=== PATIENT | male | born 1960 | race American Indian/Alaskan Native ===

== ENCOUNTER 2016-11-26 22:23 | Observation (INO) | payer BC ==
[2016-11-26 22:36] VITALS: BMI 24.4
[2016-11-26] MEDS ORDERED: Morphine 4 mg/ml ISec IVP STA (22:37)
--- NOTE | 2016-11-26 22:40 | ED PDOC ---
Arrival/HPI - General Time Seen by Provider: 11/26/16 22:27 Historian: Patient - History of Present Illness Narrative History of Present Illness (Text): 11/26/16 22:36 56 y/o male, pmh including IL with 2 cardiac stents (LAD) place by Dr. Burroughs from [facility] on 04/2010 at [place], [place]/hyperlipidemia, non- compliant with his aspirin and lipitor, c/o midsternal chest pain started today. Pt. stated that he has been walking up and down the slopes of street, chest pain aggravated walking and improved when resting, been having mid sternal chest pain 3-4 times through out the day which has not completely resolved, no palpitation, no numbness or tingling, no rash, no night sweat, no other medical or psychological complaints. Past Medical History - Provider Review Nursing Documentation Reviewed: Yes Family/Social History - Physician Review Nursing Documentation Reviewed: Yes Family/Social History: Unknown Family HX Allergies/Home Meds Allergies/Adverse Reactions: Allergies No Known Allergies Allergy (Verified 11/26/16 22:48) Review of Systems - Review of Systems Constitutional: absent: Fatigue, Fevers Eyes: absent: Vision Changes ENT: absent: Hearing Changes Respiratory: absent: SOB, Cough Cardiovascular: Chest Pain. absent: Orthopnea, Syncope Gastrointestinal: absent: Abdominal Pain, Nausea, Vomiting Skin: absent: Rash, Pruritis Neurological: absent: Headache Psychiatric: absent: Anxiety, Depression Physical Exam Vital Signs Temp Pulse Resp BP Pulse Ox 11/27/16 02:30 51 L 12 133/81 100 11/26/16 23:51 53 L 18 139/88 99 11/26/16 22:52 98.1 F 63 18 147/82 99 Pain Distress: Moderate - Systems Exam Head: Present: Atraumatic, Normocephalic Pupils: Present: PERRL Extroacular Muscles: Present: EOMI Conjunctiva: Present: Normal Mouth: Present: Moist Mucous Membranes Neck: Present: Normal Range of Motion Respiratory/Chest: Present: Clear to Auscultation, Good Air Exchange. No: Respiratory Distress, Accessory Muscle Use, Wheezes, Decreased Breath Sounds, Rales, Retracting, Rhonchi, Tachypneic, Tender to Palpation, Other Cardiovascular: Present: Regular Rate and Rhythm, Normal S1, S2, Other (no pedal edema). No: Murmurs, Irregular Rhythm, Tachycardic Abdomen: Present: Normal Bowel Sounds. No: Tenderness, Distention, Peritoneal Signs Back: Present: Normal Inspection Upper Extremity: Present: Normal Inspection. No: Cyanosis, Edema Lower Extremity: Present: Normal Inspection. No: Edema Neurological: Present: GCS=15, Speech Normal, Motor Func Grossly Intact, Gait Normal, Memory Normal Skin: Present: Warm, Dry, Normal Color. No: Rashes Psychiatric: Present: Alert, Oriented x 3, Normal Insight, Normal Concentration Medical Decision Making ED Course and Treatment: 11/26/16 22:40 -labs/ua -ekg/chest xray -IVF/aspirin/morphine/nitro SL q5min up to 3 times prn -campus monitor -observe and reassess 11/27/16 00:04 -NSR @ 69 BPM, no ST elevation or depression, T wave inversion noted on the V2- V3, no previous ekg available for comparison. -Chest xray show no active disease -Labs show no acute findings except troponin is inconclusive -1st set of troponin is indeterminate with no trend available at this point. -Pt. will need telemetry admission with 24 hours of cardiac enzyme to rule out ACS and observation over night. I discussed with the patient and he agreed to be admitted over night. -Dr. Calderon spoke to Dr. Harrell and discussed about the case to be admitted to Dr. Harrell's service -I spoke to the director medical science, discussed about the case, will come to see the patient and he will discussed with DR. Harrell - Lab Interpretations Lab Results: 11/26/16 23:15 11/26/16 23:15 Lab Results 11/26/16 23:15: Sodium 141, Potassium 3.7, Chloride 104, Carbon Dioxide 27, Anion Gap 14, BUN 19, Creatinine 1.1, Est GFR ( Amer) > 60, Est GFR (Non- Af Amer) > 60, Random Glucose 103, Calcium 9.1, Total Bilirubin 0.4, AST 22, ALT 36, Alkaline Phosphatase 54, Lactate Dehydrogenase 364, Total Creatine Kinase 140, Troponin I 0.07, NT-Pro-B Natriuret Pep 69.9, Total Protein 7.1, Albumin 4.0, Globulin 3.0, Albumin/Globulin Ratio 1.3 11/26/16 23:15: WBC 6.3, RBC 4.32, Hgb 13.2 L, Hct 39.4 L, MCV 91.2, MCH 30.6, MCHC 33.5, RDW 13.4, Plt Count 255, MPV 8.6, Gran % 63.8, Lymph % (Auto) 27.9, [place] % (Auto) 7.3 H, Eos % (Auto) 0.8 L, Baso % (Auto) 0.2, Gran # 4.01, Lymph # 1.8, [place] # 0.5, Eos # 0.1, Baso # 0.01 Interpretation: Abnormal lab values (troponin .07) - RAD Interpretation Radiology Orders: 11/26/16 22:37 CHEST PORTABLE [RAD] Stat no active disease Wet Machine Cutter: Radiologist - Medication Orders Current Medication Orders: Aspirin (Ecotrin) 81 mg PO DAILY [facility] Last Admin: 11/28/16 10:44 Dose: Atorvastatin Calcium (Lipitor) 40 mg PO DIN [facility] Last Admin: 11/28/16 18:21 Dose: 40 mg Clopidogrel Bisulfate (Plavix) 75 mg PO DAILY [facility] Last Admin: 11/28/16 10:45 Dose: Hydralazine HCl (Apresoline) 10 mg PO BID [facility] Last Admin: 11/29/16 08:11 Dose: 10 mg [facility] Pulse and Blood Pressure Document 11/29/16 08:11 RDS (Rec: 11/29/16 08:11 [place]DS [facility] [id number] Pulse Pulse Rate (60-90) 52 Blood Pressure Blood Pressure (100/60-150/90) 145/85 Metoprolol Tartrate (Lopressor) 12.5 mg PO DAILY [facility] Last Admin: 11/28/16 10:32 Dose: Not Given Non-Admin Reason: BP Parameters Not Met [facility] Pulse and Blood Pressure Document 11/28/16 10:32 KMS (Rec: 11/28/16 10:32 KMS [facility] [id number] Pulse Pulse Rate (60-90) 54 Blood Pressure Blood Pressure (100/60-150/90) 185/110 Discontinued Medications Aspirin (Aspirin) 325 mg PO STAT STA Stop: 11/26/16 22:38 Last Admin: 11/26/16 23:16 Dose: 325 mg Atorvastatin Calcium (Lipitor) 10 mg PO DIN [facility] Atorvastatin Calcium (Lipitor) 80 mg PO DIN [facility] Last Admin: 11/27/16 18:14 Dose: 80 mg Bivalirudin (Angiomax) Confirm Administered Dose 250 mg [facility] Stop: 11/28/16 07:18 Last Admin: 11/28/16 08:50 Dose: 250 mg Comments: AngioMax IV Bolus 12 ml was given @ 0850, followed by an IV Drip @ 27.8 ml/hr - discontinued @ 0906 eMAR Start Stop Document 11/28/16 08:50 KPA (Rec: 11/28/16 09:45 KPA [id number]) Intravenous Solution Start Date 11/28/16 Start Time 08:50 End Date 11/28/16 End time 09:06 Total Infusion Time 16 Clonidine HCl (Catapres) 0.1 mg PO BID [facility] Last Admin: 11/28/16 18:29 Dose: 0.1 mg MAR Pulse and Blood Pressure Document 11/28/16 18:29 KMS (Rec: 11/28/16 18:29 KMS [facility] [id number] Pulse Pulse Rate (60-90) 65 Blood Pressure Blood Pressure (100/60-150/90) 124/64 Clonidine HCl (Catapres) 0.1 mg PO 1130,1230 PRN PRN Reason: ONLY IF SBP GREATER THAN 150 Last Admin: 11/28/16 11:31 Dose: 0.1 mg MAR Pulse and Blood Pressure Document 11/28/16 11:31 KMS (Rec: 11/28/16 11:31 KMS [facility] [id number] Pulse Pulse Rate (60-90) 64 Blood Pressure Blood Pressure (100/60-150/90) 151/86 Clopidogrel Bisulfate (Plavix) 300 mg PO STAT STA Stop: 11/27/16 00:06 Last Admin: 11/27/16 00:25 Dose: 300 mg Fentanyl (Fentanyl) Confirm Administered Dose 100 mcg .ROUTE .[place]-MED ONE Stop: 11/28/16 07:53 Last Admin: 11/28/16 08:22 Dose: 100 mcg Comments: Dr. Rigo Sims adm. Fentanyl 50 mcg IV @ 0822, an additional dose of Fentanyl 50 mcg IV was given @ 0838 MAR Pain Assessment Document 11/28/16 08:22 KPA (Rec: 11/28/16 09:47 KPA [id number]) Pain Reassessment Is this a pain reassessment? No Sleep Is patient sleeping during reassessment? No Presence of Pain Presence of Pain Yes Fentanyl (Fentanyl) Confirm Administered Dose 100 mcg .ROUTE .STK-MED ONE Stop: 11/28/16 08:26 Last Admin: 11/28/16 09:10 Dose: 50 mcg [facility] Pain Assessment Document 11/28/16 09:10 KPA (Rec: 11/28/16 09:48 KPA [id number]) Pain Reassessment Is this a pain reassessment? No Sleep Is patient sleeping during reassessment? No Presence of Pain Presence of Pain Yes Re-Assess: [facility] Pain Assessment Document 11/28/16 10:10 KMS (Rec: 11/28/16 12:37 KMS [facility] [id number] Pain Reassessment Is this a pain reassessment? Yes Sleep Is patient sleeping during reassessment? No Presence of Pain Presence of Pain No Heparin Sodium (Porcine) (Heparin) 5,000 units SC Q12 [facility] PRN Reason: Protocol Last Admin: 11/27/16 09:56 Dose: 5,000 units Subcutaneous Administrations Document 11/27/16 09:56 RDS (Rec: 11/27/16 09:56 RDS [facility] [id number] Charges for Administration # of Subcutaneous Administrations 1 Hydralazine HCl (Apresoline) Confirm Administered Dose 20 mg .ROUTE .[place]-MED ONE Stop: 11/28/16 08:41 Last Admin: 11/28/16 09:47 Dose: Sodium Chloride (Sodium Chloride 0.9%) 1,000 mls @ 100 mls/hr IV .Q10H [facility] Stop: 11/28/16 14:00 Last Admin: 11/28/16 13:16 Dose: 100 mls/hr eMAR Start Stop Document 11/28/16 13:16 KMS (Rec: 11/28/16 13:31 KMS [facility] [id number] Intravenous Solution Start Date 11/28/16 Start Time 13:30 End Date 11/28/16 End time 14:00 Total Infusion Time 30 Heparin Sodium (Porcine) (Heparin 1000 Units/500 Ml Ns) Confirm Administered Dose 1,500 mls @ ud IV .STK-MED ONE Stop: 11/28/16 07:19 Last Admin: 11/28/16 12:13 Dose: Not Given Non-Admin Reason: Patient in Cardiology Iodixanol (Visipaque 320 Mg/Ml 200 Ml) Confirm Administered Dose 200 ml IV .STK- MED ONE Stop: 11/28/16 07:19 Last Admin: 11/28/16 12:14 Dose: Not Given Non-Admin Reason: Patient in Cardiology Lidocaine HCl (Lidocaine 2% 20ml Vial) Confirm Administered Dose 20 ml .ROUTE .STK-MED ONE Stop: 11/28/16 07:18 Last Admin: 11/28/16 12:13 Dose: Not Given Non-Admin Reason: Patient in Cardiology Midazolam HCl (Versed Inj) Confirm Administered Dose 2 mg .ROUTE .STK-MED ONE Stop: 11/28/16 07:53 Last Admin: 11/28/16 08:22 Dose: 2 mg Comments: Dr. Rigo Sims adm. Versed 2 mg IV @ 0822 Midazolam HCl (Versed Inj) Confirm Administered Dose 2 mg .ROUTE .STK-MED ONE Stop: 11/28/16 08:25 Last Admin: 11/28/16 08:38 Dose: 2 mg Comments: Versed 1 mg IV was given @ 0838 and 0846 Morphine Sulfate (Morphine) 4 mg IVP STAT STA Stop: 11/26/16 22:38 Last Admin: 11/26/16 23:16 Dose: 4 mg MAR Pain Assessment Document 11/26/16 23:16 (Rec: 11/26/16 23:16 YP [id number]) Pain Reassessment Is this a pain reassessment? No Sleep Is patient sleeping during reassessment? No Presence of Pain Presence of Pain Yes IVP Administration Document 11/26/16 23:16 YP (Rec: 11/26/16 23:16 [id number] Charges for Administration # of IVP Administrations 1 Nitroglycerin (Nitrostat Sl Tab) 0.3 mg SL STAT STA Stop: 11/26/16 22:38 Last Admin: 11/26/16 23:16 Dose: Nitroglycerin (Nitrostat Sl Tab) 0.3 mg SL Q5MIN STA Stop: 11/26/16 22:38 Last Admin: 11/26/16 23:16 Dose: 0.3 mg Pantoprazole Sodium (Protonix Ec Tab) 40 mg PO 0600 [facility] Last Admin: 11/27/16 06:23 Dose: - PA / DRYWALL SPRAYER / Resident Statement /DO has reviewed & agrees with the documentation as recorded. Disposition/Present on Arrival - Present on Arrival Any Indicators Present on Arrival: No History of DVT/PE: No History of Uncontrolled Diabetes: No Urinary Catheter: No History of Decub. Ulcer: No - Disposition Have Diagnosis and Disposition been Completed?: Yes Diagnosis: Chest pain, Abnormal EKG Disposition: HOSPITALIZED Disposition Time: 00:06 Patient Plan: Admission, Telemetry Patient Problems: Current Active Problems Problem Status Onset Chest pain Acute Abnormal EKG Acute Condition: GUARDED
[2016-11-26] MEDS: Sodium Chloride 0.9% 1,000 ML IV SCH (23:16)
[2016-11-26 23:25] LABS: BASO # 0.01 K/mm3 (0.0-2.0); BASO % 0.2 % (0.0-3.0); EOS # 0.1 (0.0-0.7); EOS % 0.8 % (1.5-5.0); GRAN # 4.01 (1.4-6.5); GRAN % 63.8 % (50.0-68.0); HEMATOCRIT 39.4 % (42.0-52.0); LYMPH # 1.8 (1.2-3.4); LYMPH % 27.9 % (22.0-35.0); MEAN CELL VOLUME 91.2 fl (80.0-105.0); MEAN CORPUSCULAR HEMOGLOBIN 30.6 pg (25.0-35.0); MEAN CORPUSCULAR HGB CONC 33.5 g/dl (31.0-37.0); MEAN PLATELET VOLUME 8.6 fl (7.0-11.0); MONO # 0.5 (0.1-0.6); MONO % 7.3 % (1.0-6.0); RED CELL DISTRIBUTION WIDTH 13.4 % (11.5-14.5); WHITE BLOOD COUNT 6.3 10^3/ul (4.5-11.0)
[2016-11-26 23:45] LABS: ALB/GLOB RATIO 1.3 (1.1-1.8); ALKALINE PHOSPHATASE 54 U/L (38-126); ALT/SGPT 36 U/L (7-56); AST/SGOT 22 U/L (17-59); BILIRUBIN,TOTAL 0.4 mg/dL (0.2-1.3); BLOOD UREA NITROGEN 19 mg/dL (7-21); CALCIUM 9.1 mg/dL (8.4-10.5); CARBON DIOXIDE 27 mmol/L (21-33); CHLORIDE 104 mmol/L (98-107); GFR AFRICAN-AMERICAN > 60; GLUCOSE,RANDOM 103 mg/dL (70-110); POTASSIUM 3.7 mmol/L (3.6-5.0); SODIUM 141 mmol/L (132-148); TOTAL PROTEIN 7.1 g/dL (5.8-8.3)
[2016-11-26 23:57] LABS: TROPONIN I 0.07 ng/mL
--- NOTE | 2016-11-27 04:00 | CP.PCM.HP ---
History of Present Illness - History of Present Illness History of Present Illness: Armand Thomas DO PGY1 - Internal Medicine H&P for Dr. Harrell CC: CP HPI: 56yo M with PMH of CAD s/p stents presents to ER for chest pain earlier this morning. He had several episodes of chest "squeezing and pounding" with diaphoresis today, associated with exertion. The first was in the morning when he was on his way to work, running to catch a train, which lasted until he stopped running, and stood to catch his breath. Throughout the day, any time he would exert himself by walking uphill or running up stairs, he would have a similar sensation. In the afternoon, he took 325mg ASA once, after which point the pain resolved. He took the same dose again twice more throughout the day for the same sensation. Each time he had the pain, it would resolve soon after he stopped to rest. He has not had this pain before, including when he previously had a heart attack. Currently, he denies any CP, SOB, N/V/D, abdominal pain, F/C, arm pain, back pain, neck pain, BLANCA, focal weakness or numbness, palpitations, confusion. Of note, patient reports that he stopped taking ASA and plavix about 2 years ago , and has not had follow up with any physicians since then. He moved to [place] 2 years ago from [place]. PMH: CAD with MS 2010 s/p 2 stents, dyslipidemia PSH: None Meds: None Soc: Tob denies; EtOH 2-3 drinks weekly; Illicits denies All: NKDA ROS: Constitutional: pt denies fever, chills, generalized weakness ENT: pt denies dysphagia, otalgia, hearing deficit, rhinorrhea Eyes: pt denies sudden loss of vision, diplopia, blurred vision MSK: pt denies muscle stiffness, joint pain, extremity cramping Cardio: pt denies sob, heart murmur, CP Pulm: pt denies cough, hemoptysis, wheeze GI: pt denies loss of appetite, abdominal pain, constipation, melena, n/v/d : pt denies burning on urination, urinary frequency, hematuria, urinary urgency Neuro: pt denies paresis, paresthesia, dizziness, blanca, numbness, tingling Derm: pt denies skin changes, lesions, nail changes Endo: pt denies intolerance to heat/cold, diaphoresis, night sweats, polydipsia Psych: pt denies anxiety, depression, mood changes Present on Admission - Present on Admission Any Indicators Present on Admission: No Past Patient History - Past Social History Smoking Status: Light Smoker < 10 Cigarettes Daily - CARDIAC Hx Cardiac Disorders: Yes Hx Hypercholesterolemia: Yes Hx Hypertension: Yes - PULMONARY Hx Respiratory Disorders: No - NEUROLOGICAL Hx Neurological Disorder: No - HEENT Hx HEENT Problems: Yes Other/Comment: wear glasses - RENAL Hx Chronic Kidney Disease: No - ENDOCRINE/METABOLIC Hx Endocrine Disorders: No - HEMATOLOGICAL/ONCOLOGICAL Hx Blood Disorders: No - INTEGUMENTARY Hx Dermatological Problems: No - MUSCULOSKELETAL/RHEUMATOLOGICAL Hx Musculoskeletal Disorders: No Hx Falls: No - GASTROINTESTINAL Hx Gastrointestinal Disorders: No - GENITOURINARY/GYNECOLOGICAL Hx Genitourinary Disorders: No - PSYCHIATRIC Hx Psychophysiologic Disorder: No - SURGICAL HISTORY Hx Surgeries: No Hx Cardiac Catheterization: Yes Hx Coronary Stent: Yes - ANESTHESIA Hx Anesthesia: No Meds Allergies/Adverse Reactions: Allergies Allergy/AdvReac Type Severity Reaction Status Date / Time No Known Allergies Allergy Verified 11/26/16 22:48 Results - Vital Signs Recent Vital Signs: Last Vital Signs Temp 97.7 F 11/27/16 03:30 Pulse 49 L 11/27/16 03:30 Resp 20 11/27/16 03:30 BP 141/85 11/27/16 03:30 Pulse Ox 100 11/27/16 02:30 - Labs Result Diagrams: 11/26/16 23:15 11/26/16 23:15 Assessment & Plan - Assessment and Plan (Free Text) Assessment: 56 yo M with PMH of CAD s/p stents and dyslipidemia who presented for CPOE earlier in the day, currently without CP. Plan: Chest pain, r/o ACS - Patient with h/o CAD complaining of chest pain on exertion, but currently without chest pain - EKG in ER shows NSR with inverted T-waves in V2 and V3 - First trop indeterminate at 0.07, continue to trend - Start ASA, Plavix, Lipitor, and Metoprolol - Consult cardio Tyesha), appreciate recs h/o Dyslipidemia - Check lipid panel with AM labs - Start Lipitor - Heart healthy diet GI/DVT Ppx - Heparin and protonix Patient discussed and case reviewed with attending
[2016-11-27] MEDS ORDERED: Pantoprazole 40 mg EC Tab PO SCH (06:00)
[2016-11-27 06:39] LABS: BASO # 0.01 K/mm3 (0.0-2.0); BASO % 0.2 % (0.0-3.0); EOS % 0.6 % (1.5-5.0); GRAN # 3.95 (1.4-6.5); GRAN % 62.7 % (50.0-68.0); HEMATOCRIT 39.3 % (42.0-52.0); LYMPH # 1.8 (1.2-3.4); LYMPH % 29.3 % (22.0-35.0); MEAN CELL VOLUME 92.7 fl (80.0-105.0); MEAN CORPUSCULAR HEMOGLOBIN 30.4 pg (25.0-35.0); MEAN CORPUSCULAR HGB CONC 32.8 g/dl (31.0-37.0); MEAN PLATELET VOLUME 8.9 fl (7.0-11.0); MONO # 0.5 (0.1-0.6); MONO % 7.2 % (1.0-6.0); RED CELL DISTRIBUTION WIDTH 13.7 % (11.5-14.5); WHITE BLOOD COUNT 6.3 10^3/ul (4.5-11.0)
[2016-11-27 07:19] LABS: ALB/GLOB RATIO 1.2 (1.1-1.8); ALKALINE PHOSPHATASE 50 U/L (38-126); ALT/SGPT 38 U/L (7-56); AST/SGOT 26 U/L (17-59); BILIRUBIN,TOTAL 0.4 mg/dL (0.2-1.3); BLOOD UREA NITROGEN 17 mg/dL (7-21); CALCIUM 8.8 mg/dL (8.4-10.5); CARBON DIOXIDE 27 mmol/L (21-33); CHLORIDE 106 mmol/L (98-107); CHOLESTEROL 208 mg/dL (130-200); GFR AFRICAN-AMERICAN > 60; GLUCOSE,RANDOM 91 mg/dL (70-110); MAGNESIUM 1.9 mg/dL (1.7-2.2); PHOSPHOROUS 3.5 mg/dL (2.5-4.5); POTASSIUM 3.9 mmol/L (3.6-5.0); SODIUM 143 mmol/L (132-148); TOTAL PROTEIN 6.7 g/dL (5.8-8.3)
[2016-11-27 07:21] LABS: TROPONIN I 0.05 ng/mL
[2016-11-27 07:28] LABS: INR 1.09 (0.93-1.08); PARTIAL THROMBOPLASTIN TIME 33.3 Seconds (23.7-30.8)
[2016-11-27] MEDS ORDERED: Metoprolol Succinate 25 mg XL Tab PO SCH (08:00)
--- NOTE | 2016-11-27 08:23 | RAD ---
HISTORY: chest pain COMPARISON: No prior. FINDINGS: LUNGS: No active pulmonary disease. PLEURA: No significant pleural effusion identified, no pneumothorax apparent. CARDIOVASCULAR: Normal. OSSEOUS STRUCTURES: Minor multilevel degenerative spondylosis of thoracic spine VISUALIZED UPPER ABDOMEN: Normal. OTHER FINDINGS: None. IMPRESSION: No active disease.
[2016-11-27] MEDS: Sodium Chloride 0.9% 1,000 ML IV SCH ×3 (08:45→18:50)
[2016-11-27 11:18] LABS: TROPONIN I 0.02 ng/mL
--- NOTE | 2016-11-27 12:22 | HP ---
HISTORY OF PRESENT ILLNESS: The patient is a 56-year-old -[place]og[place] male who presented to the emergency room in the late night hours of 11/26 with complaints of chest pain. The patient came to the emergency room by [facility] ambulance as per the ER triage notes. According to the patient's ER assessment and the assessment by the emergency and the bacteriologist medical, the patient stated that the patient has history of myocardial infarction, coronary artery disease, coronary angioplasty and stent placement, has been followed by a physician in [place], [place]. The patient also has history of hyperlipidemia. The patient also stated that he has been noncompliant with his aspirin and Lipitor, presented with complaining of midsternal retrosternal chest pain which started on 11/26. The patient's chest pain is exaggerated by exertion and walking up and down the slopes of the street. The patient's chest pain is worse with walking and improved with resting. The patient is reporting midsternal retrosternal chest pain almost everyday, which does not resolve completely. REVIEW OF SYSTEMS: The patient's 13-system review was done, pertinent positive and negative dictated above. The patient described the chest pain as squeezing and pounding with shortness of breath, diaphoresis and is associated with exertion. The patient is having recurrent episodes of chest pain with exertion, which subsides with rest. According to the patient's evaluation, the patient has stopped taking his aspirin and Plavix 2 years ago, has not followed up with the physician. The patient also stated to the bacteriologist medical that he has moved to [place] 2 years ago from [place]. PAST MEDICAL HISTORY: Significant for coronary artery disease, history of myocardial infarction in 2010, history of angioplasty and stent placement, history of dyslipidemia, history of noncompliance. HOME MEDICATIONS: None at home. SOCIAL HISTORY: The patient admits to social alcohol, drinking few drinks every week. Denies smoking. Denies drug use. Denies communicable transmissible disease. ALLERGIES: NONE. FAMILY HISTORY: Not available as per the patient. The patient's past medical history is also significant for coronary artery disease, coronary angioplasty, dyslipidemia and hypertension. CODE STATUS: Full code. LIVING WILL ADVANCE DIRECTIVE: None. According to the Fluencr sheet, the patient is a light smoker, 10 cigarettes or less than 10 cigarettes per day. LOCATION: The patient is seen in room #270, bed #2. PHYSICAL EXAMINATION: VITAL SIGNS: T-max 98.1; pulse 63, 53, 51; blood pressure 147/82, 139/88, 133/81, 141/85; respiration 18 to 20; O2 sat 99% to 100%. HEENT: Head examination is normocephalic and atraumatic. HEENT examination shows pink conjunctivae. Anicteric sclerae. No oropharyngeal lesion. NECK: No neck rigidity. CHEST: No audible rales, no crackles or wheezing, no rhonchi. CARDIOVASCULAR: S1, S2, regular rhythm. ABDOMEN: Soft. Positive bowel sounds. Nontender. No distention noted. No rebound tenderness. No guarding or no rigidity. No costovertebral angle tenderness. UPPER AND LOWER EXTREMITY: Shows no cyanosis. No edema. No pitting edema. NEUROLOGICALLY: The patient is alert, awake, oriented x3. Motor strength is 5/5 in upper and lower extremity. Gait examination was not tested. SKIN: Examination is negative. PSYCHIATRIC: No anxiety or depression. No auditory or visual hallucination. No suicidal or homicidal ideation. The patient was seen in the emergency room by the ER physician. The patient was given aspirin. The patient was given sublingual nitroglycerin. The patient was given Plavix 300. The patient's EKG was found to be having ST changes. The patient's EKG was sinus rhythm with T-wave inversions in V2 to V3. No previous EKG was available. The patient was treated with the above according to the patient's previous history and symptoms. LABORATORY DATA: CBC: WBC is 6.3, hemoglobin/hematocrit 13.2/39.4, platelet 255. Sodium 141, potassium 3.7, chloride 104, CO2 of 27, anion gap 14, BUN 19, creatinine 1.1, GFR greater than 60, glucose 103, calcium 9.1. LFTs are normal. Troponin 0.07. BNP 70. The patient, as mentioned, was treated with Plavix 300, sublingual nitroglycerin, aspirin 325. The patient was stabilized. The patient's chest x-ray was done in the emergency room which shows portable film with questionable cardiomegaly. IMPRESSION: 1. Chest pain. 2. Questionable unstable angina. 3. Questionable acute coronary syndrome in a patient with history of coronary artery disease and coronary angioplasty. 4. History of hypertension. 5. Possible unstable angina with exertional angina. 6. History of dyslipidemia. 7. History of medication noncompliance. 8. Mild normocytic anemia. 9. History of alcohol and nicotine use. PLAN: At this time, the patient will be admitted to [facility]. Serial cardiac enzymes, serial labs have been ordered. Cardiology consultation ordered. The patient is started on aspirin 81 daily, heparin 5000 subQ q. 12, Lipitor 10 mg daily, Lopressor 12.5 daily, Plavix 75 mg daily, Protonix 40 mg daily. The patient is on IV fluid 0.9 normal saline at 100 mL an hour. The patient's repeat EKG ordered. Heart healthy diet ordered, out of bed ordered. The patient was explained about the details of his medical condition. The patient was advised the need for hospitalization, need for further treatment, management was discussed and explained to the patient at length and all questions concerned answered. The patient was advised compliance with medication. The patient was advised need for further diagnostic therapeutic intervention and cardiology evaluation and further cardiac testing was explained to the patient at length and all questions concerned answered. The patient was advised compliance with medications upon discharge and close outpatient followup upon discharge after the patient is seen and cleared by cardiology. At present, the patient is admitted to bed 270. The patient's further management will be dependent upon as discussed above. Harsh Harrell MD
--- NOTE | 2016-11-27 22:12 | CARD ---
APPROVED REPORT EXAM: Two-dimensional and M-mode echocardiogram with Doppler and color Doppler. INDICATION Cardiac Disease: CAD Chest Pain 2D DIMENSIONS Left Atrium (2D)4.0 (1.6-4.0cm)IVSd1.0 (0.7-1.1cm) LVDd4.6 (3.9-5.9cm)PWd1.0 (0.7-1.1cm) LVDs3.0 (2.5-4.0cm)FS (%) 34.6 % LVEF (%)63.8 (>50%) M-Mode DIMENSIONS Aortic Root3.20 (2.2-3.7cm)Aortic Cusp Exc.1.80 (1.5-2.0cm) Aortic Valve AoV Peak Wahaijrz161.0cm/Angela Peak GR.5mmHg Mitral Valve E/A ratio0.0 TDI E/Lateral E'0.0E/Medial E'0.0 Tricuspid Valve TR Peak Gyugnphn997cm/sRAP [id number] Peak Gr.20mmHg [id number] LEFT VENTRICLE The left ventricle is normal size. There is normal left ventricular wall thickness. The left ventricular function is normal. The left ventricular ejection fraction is within the normal range. There is normal LV segmental wall motion. Transmitral Doppler flow pattern is Grade I-abnormal relaxation pattern. RIGHT VENTRICLE The right ventricle is normal size. There is normal right ventricular wall thickness. The right ventricular systolic function is normal. ATRIA The left atrium size is normal. The right atrium size is normal. AORTIC VALVE The aortic valve is normal in structure. No aortic regurgitation is present. There is no aortic valvular stenosis. MITRAL VALVE The mitral valve is normal in structure. There is no mitral valve regurgitation noted. TRICUSPID VALVE The tricuspid valve is normal in structure. There is no tricuspid valve regurgitation noted. GREAT VESSELS The aortic root is normal in size. The IVC is normal in size and collapses >50% with inspiration. PERICARDIAL EFFUSION There is no pericardial effusion. <Conclusion> The left ventricle is normal size. There is normal left ventricular wall thickness. The left ventricular function is normal. The left ventricular ejection fraction is within the normal range. There is normal LV segmental wall motion. Transmitral Doppler flow pattern is Grade I-abnormal relaxation pattern.
--- NOTE | 2016-11-27 22:36 | CON ---
DATE: 11/27/2016 CARDIOLOGY CONSULTATION HISTORY OF PRESENT ILLNESS: The patient is a 56-year-old male who presents with classic exertional angina which occurred while he was walking up a slight incline. PAST MEDICAL HISTORY: Notable for history of PTCA and stent of 2 lesions in 2010. He has stopped his medications over the past year because of loss of insurance, which he has now restored. The patient's cardiac risk factors include hypercholesterolemia. No previous myocardial infarction is noted. Currently, the patient is chest pain free at rest. He denies any bleeding history. Negative diabetes mellitus. SOCIAL HISTORY: He denies smoking. REVIEW OF SYSTEMS: Fourteen-point review of systems was reviewed in detail. He has exertional angina associated with shortness of breath. PHYSICAL EXAMINATION: VITAL SIGNS: Blood pressure is 136/96, heart rate is in the 60s, normal sinus rhythm. NECK: Negative JVD. LUNGS: Without rales HEART: S1, S2. EXTREMITIES: Without edema. LABORATORIES: Include EKG that was unremarkable. The troponin was 0.07 and 0.05. The cholesterol is 208 with LDH of 142. Hemoglobin is 12.9. IMPRESSION: 1. Recurrence of exertional angina. 2. High probability for coronary artery disease. 3. History of percutaneous transluminal coronary angioplasty and stent in the past. 4. Hypercholesterolemia. 5. Borderline [id number]-[id number] myocardial infarction. Given these findings, I have discussed with the patient about his high probability for recurrence of CAD. The patient is agreeable. We will arrange for cardiac catheterization in the morning. Maxime Sims MD
--- NOTE | 2016-11-27 22:50 | CARD ---
APPROVED REPORT EKG Measurement Heart [id number] <Conclusion> Marked sinus bradycardia Nonspecific ST and T wave abnormality Abnormal ECG
--- NOTE | 2016-11-27 22:57 | CARD ---
APPROVED REPORT EKG Measurement Heart [id number] <Conclusion> Normal sinus rhythm T wave abnormality, consider anterior ischemia Abnormal ECG
[2016-11-28 06:14] VITALS: O2SAT 99
[2016-11-28 07:06] LABS: BASO # 0.01 K/mm3 (0.0-2.0); BASO % 0.2 % (0.0-3.0); EOS % 0.3 % (1.5-5.0); GRAN # 4.27 (1.4-6.5); GRAN % 73.2 % (50.0-68.0); HEMATOCRIT 41.5 % (42.0-52.0); LYMPH # 1.1 (1.2-3.4); LYMPH % 19.6 % (22.0-35.0); MEAN CELL VOLUME 92.2 fl (80.0-105.0); MEAN CORPUSCULAR HEMOGLOBIN 30.4 pg (25.0-35.0); MEAN PLATELET VOLUME 8.7 fl (7.0-11.0); MONO # 0.4 (0.1-0.6); MONO % 6.7 % (1.0-6.0); RED CELL DISTRIBUTION WIDTH 13.5 % (11.5-14.5); WHITE BLOOD COUNT 5.8 10^3/ul (4.5-11.0)
[2016-11-28 07:11] LABS: ALB/GLOB RATIO 1.3 (1.1-1.8); ALKALINE PHOSPHATASE 55 U/L (38-126); ALT/SGPT 34 U/L (7-56); AST/SGOT 25 U/L (17-59); BILIRUBIN,TOTAL 0.5 mg/dL (0.2-1.3); BLOOD UREA NITROGEN 12 mg/dL (7-21); CALCIUM 9.1 mg/dL (8.4-10.5); CARBON DIOXIDE 29 mmol/L (21-33); CHLORIDE 106 mmol/L (98-107); GFR AFRICAN-AMERICAN > 60; GLUCOSE,RANDOM 100 mg/dL (70-110); POTASSIUM 4.5 mmol/L (3.6-5.0); SODIUM 143 mmol/L (132-148); TOTAL PROTEIN 6.8 g/dL (5.8-8.3)
[2016-11-28] MEDS ORDERED: Lidocaine 2% Inj (20ml) ONE (07:17)
[2016-11-28] MEDS ORDERED: Iodixanol 320 MG/ML 200 ML BOTTLE IV ONE (07:18)
[2016-11-28] MEDS ORDERED: Midazolam 2 MG/2 ML VIAL ONE ×2 (07:52→08:24)
--- NOTE | 2016-11-28 12:05 | CP.PCM.PN ---
Subjective - Date & Time of Evaluation Date of Evaluation: 11/28/16 Time of Evaluation: 10:00 - Subjective Subjective: Dr Julio Cesar Velez Pt seen and examined at bedside s/p Cardiac cath with stent. Pt has no acute complaints at this time. No acute or adverse events overnight as per nursing staff. Pt is currently lying flat, no hematoma to the site and no chest pains at this time. Pt denied fever, chills, sob, abdominal pains, n/v/d/c or urinary symptoms. Objective - Vital Signs/Intake and Output Vital Signs (last 24 hours): Temp Pulse Resp BP Pulse Ox 97.5 F L 55 L 16 148/90 99 11/28/16 09:40 11/28/16 11:55 11/28/16 11:55 11/28/16 11:55 11/28/16 06:00 Intake and Output: 11/28/16 11/28/16 06:59 18:59 Intake Total 1798 Output Total 2500 Balance -702 - Medications Medications: Current Medications Aspirin (Ecotrin) 81 mg PO DAILY [facility] Last Admin: 11/28/16 10:44 Dose: Not Given Atorvastatin Calcium (Lipitor) 40 mg PO DIN [facility] Clonidine HCl (Catapres) 0.1 mg PO BID [facility] Last Admin: 11/28/16 10:31 Dose: 0.1 mg Clonidine HCl (Catapres) 0.1 mg PO 1130,1230 PRN PRN Reason: ONLY IF SBP GREATER THAN 150 Last Admin: 11/28/16 11:31 Dose: 0.1 mg Clopidogrel Bisulfate (Plavix) 75 mg PO DAILY [facility] Last Admin: 11/28/16 10:45 Dose: Not Given Sodium Chloride (Sodium Chloride 0.9%) 1,000 mls @ 100 mls/hr IV .Q10H [facility] Stop: 11/28/16 14:00 Last Admin: 11/27/16 18:50 Dose: Not Given Metoprolol Tartrate (Lopressor) 12.5 mg PO DAILY [facility] Last Admin: 11/28/16 10:32 Dose: Not Given - Labs Labs: 11/28/16 06:30 11/28/16 06:30 PT 11.8 Seconds (9.9-11.8) 11/27/16 07:10 INR 1.09 (0.93-1.08) H 11/27/16 07:10 APTT 33.3 Seconds (23.7-30.8) H 11/27/16 07:10 - Constitutional Appears: No Acute Distress - Head Exam Head Exam: ATRAUMATIC, NORMAL INSPECTION, NORMOCEPHALIC - Eye Exam Eye Exam: EOMI, Normal appearance, PERRL - ENT Exam ENT Exam: Mucous Membranes Moist, Normal Exam - Neck Exam Neck Exam: Full ROM, Normal Inspection. absent: Lymphadenopathy - Respiratory Exam Respiratory Exam: Clear to Ausculation Bilateral, NORMAL BREATHING PATTERN - Cardiovascular Exam Cardiovascular Exam: REGULAR RHYTHM, +S1, +S2. absent: Murmur - GI/Abdominal Exam GI & Abdominal Exam: Soft, Normal Bowel Sounds. absent: Tenderness - Extremities Exam Extremities Exam: Full ROM, Normal Capillary Refill, Normal Inspection. absent : Joint Swelling, Pedal Edema - Neurological Exam Neurological Exam: Alert, Awake, CN II-XII Intact, Normal Gait, Oriented x3 - Psychiatric Exam Psychiatric exam: Normal Affect, Normal Mood - Skin Skin Exam: Dry, Intact, Normal Color, Warm Assessment and Plan - Assessment and Plan (Free Text) Assessment: 56 yo M with PMH of CAD s/p stents and dyslipidemia who presented with chest pains, cardiac cath demonstrated 99% occlusion/restenosis of proximal LAD. Chest pain - cardiac cath demonstrated 99% occlusion/restenosis of proximal LAD - Start ASA, Plavix, Lipitor, and Metoprolol - Consult cardio Tyesha), following, sp cardiac cath, ok to dc home tomorrow h/o Dyslipidemia - Lipitor - Heart healthy diet GI/DVT Ppx - Heparin and protonix
--- NOTE | 2016-11-28 12:40 | CARDCATH ---
PROCEDURE DATE: 11/28/2016 HISTORY: The patient presents with a non-STEMI. He had previous PTCA and stent in the past and has been noncompliant with medications due to various reasons. PROCEDURES: Left heart catheterization with coronary angiography and left ventriculogram followed by PTCA and stent of an LAD. DESCRIPTION: The right femoral artery was cannulated with a 6-Wolof sheath. There were no complications. The findings on catheterization revealed a right dominant circulation. The RCA was selectively cannulized and found to have diffuse atherosclerosis with 70% stenosis in the distal PDA. The left main artery was unremarkable. The circumflex artery and obtuse marginal branches revealed intimal irregularities without significant stenoses. The proximal portion of the first obtuse marginal branch revealed a patent stent. The LAD revealed diffuse atherosclerosis. In the proximal portion of the LAD, there was a 99% stenosis representing an in-stent restenosis Left ventriculogram was performed in the ARNETT projection. In the ARNETT projection, the anterior wall was mildly hypokinetic with an estimated ejection fraction of 45%-50%. The patient started on intravenous Angiomax. Under fluoroscopic guide, the guiding catheter was placed in the ostium of the left main artery. A 0.014 ATW wire was used to cross the lesion. A 2.0 balloon was utilized to predilate the lesion. A 2.75 x 18 mm drug-eluting stent was placed and deployed in the proximal LAD lesion and deployed at 15 atmospheres of pressure. Repeat coronary angiography revealed an excellent result with no residual stenosis and JAMA III flow. The patient experienced chest discomfort immediately after deployment of the stent. Repeat EKG revealed no changes with normal flow down the LAD. Angio-Seal was used to close the femoral artery site. The patient tolerated the procedure well. In summary, the procedure was successful PTCA and stent of an LAD which was a 99% stenosis. Cardiac catheterization revealed a patent stent in the obtuse marginal branch as well as an in-stent restenosis of the proximal LAD underwent manipulation. LV function revealed mild LV hypokinesis. Given these findings, the patient will need to remain on aspirin indefinitely and Plavix for at least a year and undergo a strict cardiac-risk reduction program. Maxime Sims MD
[2016-11-28] MEDS: Sodium Chloride 0.9% 1,000 ML IV SCH (13:16)
--- NOTE | 2016-11-28 21:01 | PN ---
DATE: 11/28/2016 LOCATION: The patient is seen in room 273, bed 3. SUBJECTIVE: The patient is lying in the bed post cardiac catheterization. The patient does not appear to be in any distress. The patient is stable. The patient is being monitored by the telemetry nurses. PHYSICAL EXAMINATION: VITAL SIGNS: T-max 98, telemetry shows sinus rhythm, sinus bradycardia, heart rate in the high 50s to low 60s, blood pressure in the last 24 hours ranging from 130s to 140s to 150s, respirations 17, and O2 saturations 98% to 100%. GENERAL: The patient is lying in the bed. HEAD: Normocephalic and atraumatic. ENT: Shows pink conjunctivae. Anicteric sclerae. No oropharyngeal lesion. NECK: No neck rigidity. CHEST: Symmetrical. LUNGS: Shows no rales, crackles, or wheezing. CARDIOVASCULAR: S1 and S2, regular rhythm. Questionable soft systolic murmur, left sternal border at left second intercostal space. ABDOMEN: Soft. Positive bowel sounds. MUSCULOSKELETAL: Shows a body mass index of 31.3. NEUROLOGIC: Gait examination is not tested. The patient is lying in the bed post cardiac catheterization. DIAGNOSTIC DATA: On 11/28/2016, WBC 5.8, hemoglobin and hematocrit 13.7 and 41.5, and platelet 255. Sodium 143, potassium 4.5, chloride 106, CO2 29, anion gap of 13, BUN 12, creatinine 1.2, GFR greater than 60, glucose 100, calcium 9.1. LFTs are normal. Troponin is 0.02. Cholesterol 208, LDL 142. Urine and drug screen positive for opioids for which the patient received morphine in the ER yesterday. The patient underwent cardiac catheterization and angioplasty today. IMPRESSION: 1. Stenosis 70% of the distal posterior descending artery. 2. Patent stent in the proximal obtuse marginal one branch. 3. Stenosis 99% of the proximal left anterior descending in-stent restenosis. 4. Mildly hypokinetic in anterior wall with ejection fraction of 45% to 50%. 5. Status post successful angioplasty and stent placement of the left anterior descending with 99% stenosis. 6. Mild left ventricular hypokinesis. 7. Patent stent in the obtuse marginal branch. 8. In-stent restenosis of the proximal left anterior descending. 9. Unstable angina. 10. Bradycardia. 11. Transient uncontrolled hypertension. 12. Hypercholesterolemia with elevated LDL. 13. Mild normocytic anemia with granulocytosis. 14. Degenerative spondylosis of the thoracic spine. 15. Anterior ischemic changes on the EKG. 16. Concentric left ventricular hypertrophy. 17. Exertional angina. 18. History of coronary artery disease. 19. Borderline jpy-KN-wokbndode myocardial infarction. PLAN: At this time, the patient has been ordered post cardiac catheterization angioplasty care. The patient is to be maintained on aspirin 81 mg daily, Lipitor 40 mg daily, clonidine 0.1 mg twice a day, Plavix 75 mg daily, and Lopressor 12.5 mg daily. The patient has been ordered repeat EKG. The patient is ordered post cardiac angioplasty bedrest. At present, the patient will be evaluated very closely. The patient's further management will be dependent upon the patient's clinical condition, hemodynamic status, as per the patient's response with therapeutic intervention, as per the patient's diagnostic test results, and as per recommendations by cardiology. If the patient stays stable, the patient will be considered for discharge in a.m. Dictated and electronically signed, not read. Harsh Harrell MD
--- NOTE | 2016-11-28 23:07 | CARD ---
APPROVED REPORT EKG Measurement Heart [id number] [id number] [id number] <Conclusion> Normal sinus rhythm with sinus arrhythmia Nonspecific T wave abnormality Abnormal ECG
[2016-11-29 06:42] LABS: BASO # 0.01 K/mm3 (0.0-2.0); BASO % 0.1 % (0.0-3.0); EOS % 0.5 % (1.5-5.0); GRAN # 5.25 (1.4-6.5); GRAN % 68.7 % (50.0-68.0); HEMATOCRIT 42.2 % (42.0-52.0); LYMPH # 1.7 (1.2-3.4); LYMPH % 21.8 % (22.0-35.0); MEAN CELL VOLUME 90.9 fl (80.0-105.0); MEAN CORPUSCULAR HGB CONC 32.9 g/dl (31.0-37.0); MEAN PLATELET VOLUME 8.7 fl (7.0-11.0); MONO # 0.7 (0.1-0.6); MONO % 8.9 % (1.0-6.0); RED CELL DISTRIBUTION WIDTH 13.4 % (11.5-14.5); WHITE BLOOD COUNT 7.7 10^3/ul (4.5-11.0)
[2016-11-29 07:07] LABS: ALB/GLOB RATIO 1.2 (1.1-1.8); ALKALINE PHOSPHATASE 56 U/L (38-126); ALT/SGPT 31 U/L (7-56); AST/SGOT 24 U/L (17-59); BILIRUBIN,TOTAL 0.6 mg/dL (0.2-1.3); BLOOD UREA NITROGEN 13 mg/dL (7-21); CALCIUM 9.1 mg/dL (8.4-10.5); CARBON DIOXIDE 28 mmol/L (21-33); CHLORIDE 103 mmol/L (98-107); GFR AFRICAN-AMERICAN > 60; GLUCOSE,RANDOM 100 mg/dL (70-110); SODIUM 142 mmol/L (132-148); TOTAL PROTEIN 6.8 g/dL (5.8-8.3)
[2016-11-29 08:23] LABS: FREE T4 0.78 ng/dL (0.78-2.19); T4 6.4 ug/dL (5.5-11.0)
[2016-11-29 08:37] LABS: THYROID STIMULATING HORMONE 0.97 mIU/mL (0.46-4.68)
[2016-11-29 11:49] VITALS: BP 139/91; PULSE 64; RESP 18; TEMP 98.5
--- NOTE | 2016-11-29 13:46 | PN ---
DATE: 11/29/2016 CARDIOLOGY FOLLOWUP SUBJECTIVE: The patient is without chest pain, without shortness of breath. OBJECTIVE: VITAL SIGNS: On physical exam, blood pressure 135/91, heart rate in the 60s, normal sinus rhythm. NECK: Negative JVD. LUNGS: Without rales. HEART: S1, S2. EXTREMITIES: Without edema. LABORATORY DATA: BUN and creatinine unremarkable. Hemoglobin is 13.9. IMPRESSION: 1. Status post percutaneous transluminal coronary angioplasty and stent with a 90% left anterior descending artery stenosis. 2. Hypertension. 3. Hypercholesterolemia. 4. History of percutaneous transluminal coronary angioplasty in the past. PLAN: Given these findings, the patient is stable for discharge. Follow up instructions given to the patient in detail. I have discussed cardiac risk reduction program as well as reviewed his medications with the patient. Maxime Sims MD
--- NOTE | 2016-11-29 14:31 | CP.PCM.DIS ---
Provider - Provider Date of Admission: 11/27/16 00:01 Attending physician: Harsh Harrell MD Primary care physician: NO PRIMARY CARE PROVIDER Consults: Cardiology: Levi Time Spent in preparation of Discharge (in minutes): 45 Hospital Course - Lab Results Lab Results: Most Recent Lab Values WBC 7.7 10^3/ul (4.5-11.0) D 11/29/16 05:40 RBC 4.64 10^6/uL (3.5-6.1) 11/29/16 05:40 Hgb 13.9 g/dL (14.0-18.0) L 11/29/16 05:40 Hct 42.2 % (42.0-52.0) 11/29/16 05:40 MCV 90.9 fl (80.0-105.0) 11/29/16 05:40 MCH 30.0 pg (25.0-35.0) 11/29/16 05:40 MCHC 32.9 g/dl (31.0-37.0) 11/29/16 05:40 RDW 13.4 % (11.5-14.5) 11/29/16 05:40 Plt Count 254 10^3/uL (120.0-450.0) 11/29/16 05:40 MPV 8.7 fl (7.0-11.0) 11/29/16 05:40 Gran % 68.7 % (50.0-68.0) H 11/29/16 05:40 Lymph % (Auto) 21.8 % (22.0-35.0) L 11/29/16 05:40 Jenkins % (Auto) 8.9 % (1.0-6.0) H 11/29/16 05:40 Eos % (Auto) 0.5 % (1.5-5.0) L 11/29/16 05:40 Baso % (Auto) 0.1 % (0.0-3.0) 11/29/16 05:40 Gran # 5.25 (1.4-6.5) 11/29/16 05:40 Lymph # 1.7 (1.2-3.4) 11/29/16 05:40 Jenkins # 0.7 (0.1-0.6) H 11/29/16 05:40 Eos # 0.0 (0.0-0.7) 11/29/16 05:40 Baso # 0.01 K/mm3 (0.0-2.0) 11/29/16 05:40 PT 11.8 Seconds (9.9-11.8) 11/27/16 07:10 INR 1.09 (0.93-1.08) H 11/27/16 07:10 APTT 33.3 Seconds (23.7-30.8) H 11/27/16 07:10 Sodium 142 mmol/L (132-148) 11/29/16 05:40 Potassium 4.0 mmol/L (3.6-5.0) 11/29/16 05:40 Chloride 103 mmol/L (98-107) 11/29/16 05:40 Carbon Dioxide 28 mmol/L (21-33) 11/29/16 05:40 Anion Gap 15 (10-20) 11/29/16 05:40 BUN 13 mg/dL (7-21) 11/29/16 05:40 Creatinine 1.2 mg/dL (0.5-1.4) 11/29/16 05:40 Est GFR ( Amer) > 60 11/29/16 05:40 Est GFR (Non-Af Amer) > 60 11/29/16 05:40 Random Glucose 100 mg/dL (70-110) 11/29/16 05:40 Calcium 9.1 mg/dL (8.4-10.5) 11/29/16 05:40 Phosphorus 3.5 mg/dL (2.5-4.5) 11/27/16 06:06 Magnesium 1.9 mg/dL (1.7-2.2) 11/27/16 06:06 Total Bilirubin 0.6 mg/dL (0.2-1.3) 11/29/16 05:40 AST 24 U/L (17-59) 11/29/16 05:40 ALT 31 U/L (7-56) 11/29/16 05:40 Alkaline Phosphatase 56 U/L (38-126) 11/29/16 05:40 Lactate Dehydrogenase 298 U/L (333-699) L 11/27/16 10:45 Total Creatine Kinase 117 U/L (35-230) 11/27/16 10:45 Troponin I 0.02 ng/mL D 11/27/16 10:45 NT-Pro-B Natriuret Pep 69.9 pg/mL (0-450) 11/26/16 23:15 Total Protein 6.8 g/dL (5.8-8.3) 11/29/16 05:40 Albumin 3.7 g/dL (3.0-4.8) 11/29/16 05:40 Globulin 3.1 gm/dL 11/29/16 05:40 Albumin/Globulin Ratio 1.2 (1.1-1.8) 11/29/16 05:40 Triglycerides 109 mg/dL (35-160) 11/27/16 06:06 Cholesterol 208 mg/dL (130-200) H 11/27/16 06:06 LDL Cholesterol Direct 142 mg/dL (0-129) H 11/27/16 06:06 HDL Cholesterol 37 mg/dL (29-60) 11/27/16 06:06 Prostate Specific Ag 2.0 ng/mL (0.00-2.5) 11/29/16 07:40 Free T4 0.78 ng/dL (0.78-2.19) 11/29/16 07:40 Thyroxine (T4) 6.4 ug/dL (5.5-11.0) 11/29/16 07:40 TSH 3rd Generation 0.97 mIU/mL (0.46-4.68) 11/29/16 07:40 Urine Opiates Screen Positive (NEGATIVE) H 11/27/16 08:40 Urine Methadone Screen Negative (NEGATIVE) 11/27/16 08:40 Ur Barbiturates Screen Negative (NEGATIVE) 11/27/16 08:40 Ur Phencyclidine Scrn Negative (NEGATIVE) 11/27/16 08:40 Ur Amphetamines Screen Negative (NEGATIVE) 11/27/16 08:40 U Benzodiazepines Scrn Negative (NEGATIVE) 11/27/16 08:40 U Oth Cocaine Metabols Negative (NEGATIVE) 11/27/16 08:40 U Cannabinoids Screen Negative (NEGATIVE) 11/27/16 08:40 - Hospital Course Hospital Course: 56yo M with PMHx of HLD, CAD s/p stent, [place] came to the ER with chest pain. Patient has been non-compliant with his medications for over 1 year (ASA, lipitor). His pain was described as squeezing with associated shortness of breath. Cardiology was consulted. The patient was taken for cardiac cath and a 90% stenosis of the LAD was found, stent placed. Patient post-operative course was unremarkable. He was started on ASA/Plavix and was cleared for discharge. He was also started on lipitor, hydralazine and metoprolol. Discussed plan in detail with the patient. He understands and agrees with plan. He is to follow up with Dr. Sims and Dr. Harrell as out-patient. All questions and concerns addressed. Discharge Exam - Head Exam Head Exam: ATRAUMATIC, NORMAL INSPECTION, NORMOCEPHALIC - Eye Exam Eye Exam: EOMI, Normal appearance - ENT Exam ENT Exam: Mucous Membranes Moist - Neck Exam Neck exam: Full Rom - Respiratory Exam Respiratory Exam: Clear to PA & Lateral, NORMAL BREATHING PATTERN, UNREMARKABLE. absent: Decreased Breath Sounds, Rales, Rhonchi, Wheezes, Respiratory Distress - Cardiovascular Exam Cardiovascular Exam: RRR, +S1, +S2. absent: JVD - GI/Abdominal Exam GI & Abdominal Exam: Soft. absent: Distended, Firm, Guarding, Rigid, Tenderness - Extremities Exam Extremities exam: normal inspection Additional comments: RT groin cath access site with no evidence of hematoma. - Neurological Exam Neurological exam: Alert, Oriented x3 - Psychiatric Exam Psychiatric exam: Normal Affect, Normal Mood - Skin Skin Exam: Dry, Intact, Normal Color, Warm Discharge Plan - Discharge Medications Prescriptions: Aspirin [Ecotrin] 81 mg PO DAILY #90 tabec Atorvastatin [Lipitor] 40 mg PO DIN #30 tab Clopidogrel [Plavix] 75 mg PO DAILY #30 tab hydrALAZINE [Apresoline] 10 mg PO BID #60 tab Metoprolol Tartrate [Lopressor] 12.5 mg PO DAILY #30 tab - Follow Up Plan Condition: GUARDED Disposition: HOME/ ROUTINE Instructions: Coronary Artery Disease (DC), Chest Pain (DC), How to Stop Smoking (DC), Heart Healthy Diet (DC), Cigarette Smoking and Your Health (GEN), Cholesterol and Your Health (GEN), Low Sodium Diet (DC), Hypertensive Crisis (DC ), Hyperlipidemia (DC), Heart Catheterization (DC) Additional Instructions: DISCHARGE HOME AFTER CLEARED BY CARDIOLOGY FOLLOW UP WITHIN 1 WEEK DISCHARGE MEDS PER AMBULATORY ORDERS SENT TO [facility] Referrals: Harsh Harrell MD [Staff Provider] - 1 Week (DISCHARGE HOME AFTER CLEARED BY CARDIOLOGY FOLLOW UP WITHIN 1 WEEK DISCHARGE MEDS PER AMBULATORY ORDERS SENT TO [facility])
--- NOTE | 2016-11-29 18:56 | CARD ---
APPROVED REPORT EKG Measurement Heart [id number] [id number] [id number] <Conclusion> Sinus bradycardia Otherwise normal ECG
--- NOTE | 2016-11-29 20:14 | DS ---
HOSPITAL COURSE: The patient is seen lying in the bed in room 273 bed 2. The patient is status post angioplasty and cardiac catheterization and stent placement of the left anterior descending artery. The patient's overnight nurse's notes were reviewed. The patient tolerated the angioplasty and stent placement without any adverse event. The patient's right groin examination shows no hematoma. No discoloration. No ecchymosis. Positive palpable pulses. PHYSICAL EXAMINATION: VITAL SIGNS: T-max afebrile, heart rate in the low 50s. Blood pressure yesterday was elevated post cardiac catheterization which was later uncontrolled with modification and optimization of medication. The patient's today's blood pressure systolic is around one 120s and 130s diastolic is in 80s and 70s. Respirations 18 to 20, O2 sat is mid to high 90%. GENERAL: The patient is seen lying in the bed. HEENT: Head emanation normocephalic, atraumatic. HEENT examination shows pink conjunctivae. Anicteric sclerae. No oropharyngeal lesion. NECK: No neck rigidity. CHEST: Examination symmetrical. Lung examination shows no rales, crackles, or wheezing. CARDIOVASCULAR: Examination S1, S2, regular rhythm. ABDOMEN: Soft. Positive bowel sounds. GENITALIA: Male. RECTAL: Examination is deferred. Positive right groin heavy dressing noted. No hematoma noted. Palpable pulses of the right lower extremity. MUSCULOSKELETAL: Examination is as per the body mass index documented. NEUROLOGIC: Motor strength is 5/5 and lower extremity. Gait examination is not tested. DIAGNOSTICS: Reviewed from today. The patient's vitamin D and PSA level are pending. The patient's thyroid panel is pending, which will be reviewed when available. IMPRESSION AND PLAN: 1. Multivessel coronary artery disease. 2. History of myocardial infarction and multivessel coronary artery disease and history of angioplasty. 3. Status post angioplasty and stent placement of the 99% proximal left anterior descending lesion. 4. Hypertension with transient period of uncontrolled hypertension. 5. Bradycardia. 6. Hypercholesterolemia, dyslipidemia with elevated LDL. 7. Mild normocytic anemia. 8. The patient is status post cardiac catheterization and angioplasty and drug-eluting stent placement of 90% proximal left anterior descending artery. 9. Questionable borderline non-ST elevation myocardial infarction with exertional angina. PLAN: At this time, the patient will be discharged after cleared by Cardiology. The patient's discharge medications will be as per the ambulatory orders. The patient has been counseled about close followup in the office within 1 week. The patient was advised no alcohol, no smoking, no driving. The patient was advised strict compliance with diet and medication which patient acknowledged understood and all questions and concerns answered. DISCHARGE MEDICATIONS: Ecotrin 81 mg daily, Plavix 75 mg daily, Lipitor 40 mg daily, hydralazine 10 mg twice a day, Lopressor 12.5 mg daily. The patient's prescription was electronically scribed to the pharmacy. During this hospitalization, the patient was extensively explained on a daily basis about his condition, diagnosis, test results, and recommendation and treatment plan by all the physicians involved in the care of the patient and all questions and concerns answered, which he acknowledged understood. The patient will be discharged after cleared by Cardiology. The patient's further management will be dependent upon the patient's close outpatient followup. Time spent in the entire discharge process is more than 45 minutes. Harsh Harrell MD
== END 2016-11-29 14:37 | disposition home or self-care (01) ==
LOC: ED 22:23 → ERH 11-27 00:01 → 2RSO 11-27 03:23
PROVIDERS: ADMIT Internal Medicine; ATTEND Internal Medicine
DX: I25.110 Atherosclerotic heart disease of native coronary artery with unstable angina pectoris (principal); T82.855A Stenosis of coronary artery stent, initial encounter; I21.4 Non-ST elevation (NSTEMI) myocardial infarction; I11.9 Hypertensive heart disease without heart failure; E78.00 Pure hypercholesterolemia, unspecified; E78.5 Hyperlipidemia, unspecified; I24.9 Acute ischemic heart disease, unspecified; D64.9 Anemia, unspecified; I25.2 Old myocardial infarction; F17.210 Nicotine dependence, cigarettes, uncomplicated; R00.1 Bradycardia, unspecified; M47.814 Spondylosis without myelopathy or radiculopathy, thoracic region; Y83.1 Surgical operation with implant of artificial internal device as the cause of abnormal reaction of the patient, or of later complication, without mention of misadventure at the time of the procedure; Z91.14 Patient's other noncompliance with medication regimen; R40.2412 Glasgow coma scale score 13-15, at arrival to emergency department
CPT/HCPCS: 36415; 71010; 80053; 80061; 82306; 82550; 83615; 83735; 83880; 84100; 84153; 84439; 84443; 84484; 85025; 85610; 85730; 93005; 93306; 93458; 96374; 99152; 99285; C1725; C1760; C1769; C1874; C1887; C2629; C9600; G0378; G0480; J0583; J1644; J2250; J2270; J3010; J7040